=== PATIENT | female | born 1985 | race Caucasian/White ===

== ENCOUNTER 2023-11-10 16:56 | Emergency (ER) | payer BC, SELFPAY ==
--- NOTE | ~2023-11-10 | CT_ITS ---
EXAMINATION: CT lumbar spine wo con DATE: 11/10/2023 21:01 INDICATION: Low back pain radiating down left leg TECHNIQUE: Computed tomography (CT) of the lumbar spine was performed without intravenous contrast. A utomated exposure control and iterative reconstruction technique were employed. Exam dose: 284.32 mG y-cm total exam DLP. COMPARISON: None FINDINGS: The lumbar vertebrae are normally aligned. No fracture or bone destruction, spondylolysis o r spondylolisthesis. No primary or secondary spinal stenosis is identified.. Lumbar and lumbosacral i nterspaces are well preserved. No significant encroachment upon the dural sac lumbar or sacral nerve roots is identified. IMPRESSION: No significant abnormality detected Reviewed, dictated and finalized at [facility]. Reviewed, dictated and finalized at location A. ET CLEANER
[2023-11-10 16:58] VITALS: BP 140/54; PULSE 65; RESP 18; TEMP 36.9; O2SAT 100
[2023-11-10 20:05] VITALS: BP 116/64; PULSE 63; RESP 17; O2SAT 100
--- NOTE | 2023-11-10 20:06 | PC.NURSE ---
Pt states she took 2 ibuprofen at approx 1830 with slight relief. patient states she sees PT but the pain has worsened today.
--- NOTE | 2023-11-10 20:28 | PC.NURSE ---
Patient ambulated to the bathroom, unable to provide a urine specimen. Patient states she will attempt to provide a sample in a few minutes.
--- NOTE | 2023-11-10 20:40 | ED.BACK ---
HPI - Back Pain/Injury General Chief Complaint: Back Pain/Injury Stated Complaint: Left Back Pain, Pain Down Leg Time Seen by Provider: 11/10/23 20:05 Source: patient Mode of arrival: ambulatory Limitations: no limitations History of Present Illness HPI Narrative: This is a 38 year old female that presents to the ER for low back pain. Reports ongoing for quite some time, but worsening recently. She has been in physical therapy for this with little relief. Reports the pain is worse with movement and ambulation. Radiates down her left leg. Denies fever, dysuria, hematuria, saddle anesthesia or bowel/bladder incontinence. Related Data Allergies Allergy/AdvReac Type Severity Reaction Status Date / Time No Known Allergies Allergy Verified 11/10/23 20:06 Review of Systems Review of Systems: CONSTITUTIONAL: Denies fever GENITOURINARY: Denies dysuria or hematuria. SKIN: Denies rash MUSCULOSKELETAL: Reports back pain, joint pain, and myalgia. NEUROLOGIC: Denies numbness, or weakness. All systems reviewed & are unremarkable except as noted in HPI and below PMFSH Past Medical History Medical History (Updated 11/10/23 @ 22:36 by Kristin Corbin PA-C) No active medical problems Social History Social History (Updated 11/10/23 @ 20:42 by Kristin Corbin PA-C) Smoking status: Never smoker Exam Narrative: GENERAL: Well-appearing, well-nourished, and in no acute distress. HEAD: Normocephalic, atraumatic. EYES: EOMI. CHEST: Clear to auscultation. No respiratory distress. No wheezes rales or rhonchi HEART: Regular rate and rhythm. No murmur heard. Normal peripheral pulses. ABDOMEN: Soft, nontender, nondistended, normal active bowel sounds. EXTREMITIES: Normal range of motion. No edema. Strength equal in bilateral lower extremities (5/5). Normal DP pulses SKIN: Warm, dry, no rash. NEURO: No focal deficits. Alert and oriented x3. PSYCH: Normal mood and affect Course Course Emergency Course: Patient and family updated on workup and agree with plan of care Vital Signs Vital signs: Vital Signs Temperature 98.4 F 11/10/23 16:58 Pulse Rate 65 11/10/23 16:58 Respiratory Rate 18 11/10/23 16:58 Blood Pressure 140/54 L 11/10/23 16:58 Pulse Oximetry 100 11/10/23 16:58 Oxygen Delivery Room Air 11/10/23 16:58 Temperature 98.4 F 11/10/23 16:58 Pulse Rate 63 11/10/23 20:05 Respiratory Rate 17 11/10/23 20:05 Blood Pressure 116/64 11/10/23 20:05 Pulse Oximetry 100 11/10/23 20:05 Oxygen Delivery Room Air 11/10/23 16:58 MDM - Back Pain/Injury MDM Narrative Medical decision making narrative: Patient presents to the ER for acute on chronic low back pain. She is neurologically intact. Her vitals are stable. CT lumbar spine without concerning findings. Patient reports improvement with Tylenol and Valium. Instructed on continued care of sciatica. Will be started on steroid taper. UA with 6-10 WBCs, but also squamous epithelial cells. Likely contamination. This will be sent for culture. Patient is not having any urinary symptoms. She is to follow up with her PCP and neurosurgery. She was given warnings to return to the ER Differential Diagnosis Differential diagnosis: Likely lumbar radiculopathy, sciatica, strain of lumbar region and other (uti) Lab Data Attestation: I reviewed the patient's lab results. Labs: Lab Results 11/10/23 Range/Units 20:50 Urine Color Yellow (Yellow) Urine Appearance Cloudy H (Clear) Urine pH 6.0 (5.0-9.0) Ur Specific [place] 1.017 (1.001-1.035) Urine Protein Negative (Negative) mg/dL Urine Glucose (UA) Negative (Negative) mg/dL Urine Ketones Negative (Negative) mg/dL Ur Blood (Man) Non-hemolyzed trace (Negative) Urine Nitrate Negative (Negative) Urine Bilirubin Negative (Negative) Urine Urobilinogen 0.2 (<2.0) mg/dL Leukocyte Esterase Rfl 1+ H (Negative) JAMIE/UL Urine RBC 3-5 H (0-2) /hpf Urine
[2023-11-10] MEDS: diazePAM INJ (*CRX) 10 MG/2 ML SYRINGE 5 MG IM (20:45)
[2023-11-10] MEDS: ACETAMINOPHEN 500 MG TABLET 1000 MG PO (20:45)
[2023-11-10 21:00] LABS: Appearance Urine Cloudy (Clear); Bacteria Urine Rare /hpf; Bilirubin Urine Negative (Negative); Color Urine Yellow (Yellow); Glucose Urine UA Negative (Negative); Ketones Urine Negative (Negative); Leukocyte Esterase Ur 1+ LEU/UL (Negative); Nitrate Urine Negative (Negative); Non Pathogenic Casts 0-2; Protein Urine Negative (Negative); Specific Grav Ur 1.017 (1.001-1.035); Squamous Epithelial Cell Urine Occasional /hpf (Few); Urobilinogen Urine 0.2 mg/dL (<2.0)
[2023-11-10 21:05] LABS: Add Urine Microscopic? YES
[2023-11-10 22:53] VITALS: BP 112/72; PULSE 62; RESP 16; O2SAT 98
== END 2023-11-10 22:54 | disposition home or self-care (01) ==
PROVIDERS: Emergency Provider Physician Assistant; PCP Internal Medicine
DX: M54.16 Radiculopathy, lumbar region (principal)
CPT/HCPCS: 72131; 81001; 81025; 87086; 96372; 99284; A9270; J3360

== ENCOUNTER 2024-06-25 08:15 | Outpatient (CLI) | payer BC, SELFPAY ==
--- NOTE | ~2024-06-25 | MM_ITS ---
EXAMINATION: MM screening lon BI w flaco HISTORY: Screening TECHNIQUE: Craniocaudal and mediolateral oblique 3-D tomosynthesis images were obtained and synthetic 2-D images were generated. CAD analysis was submitted and interpreted. COMPARISON: No prior mammogram is available for comparison at this institution. BREAST PARENCHYMAL COMPOSITION: Dense: The breasts are extremely dense, which lowers the sensitivity of mammography. FINDINGS: There is no evidence of suspicious mass, calcification, or architectural distortion to sugg est malignancy in either breast. There has been no suspicious interval change. IMPRESSION: 1. No mammographic evidence of malignancy. 2. Recommend routine screening mammography in one year. BI-RADS Category 1: Negative Reviewed, dictated and finalized at location [facility].
== END 2024-06-25 08:16 ==
LOC: CHSIMG 08:20
PROVIDERS: PCP Internal Medicine; Visit Provider Internal Medicine
DX: Z12.31 Encounter for screening mammogram for malignant neoplasm of breast (principal)
CPT/HCPCS: 77063; 77067

== ENCOUNTER 2025-07-11 08:03 | Outpatient (CLI) | payer BC, SELFPAY ==
--- OUTSIDE RECORDS SUMMARY | 2025-07-07 03:45 | XMS_ITS | Continuity of Care Document ---
Author Organization [facility] Address [address] [place] [address] Phone Care Team Providers Care Assistant Manager Quality Management Name Role Phone Floyd Gardiner MD, MD Unavailable Unavailable Allergies, Adverse Reactions, Alerts Substance Reaction Status Criticality No Known Allergies Active No Inform ation Medications Medication Instructions Dosage Effective Dates (start - stop) Status Comments meloxicam 15 mg tablet take 1 tablet by oral route every day 15 MG - Active Procedures Procedure Date X-ray exam shoulder complete, minimum 2 views Office/outpatient visit,[facility], [facility] [place] X-ray Exam Hip Unilat With Pelvis When P erformed Min 4 Views Office/outpatient visit,[place], [facility] [place] 2024 Advance Directives Directive Yes / No Effective Date File Name No Information Encounters Encounter Description Practice Location Reason(s) For Visit Diagnoses Date Provider Providers Copied on Encounter Office/[place]pa [place]ient visit[place], [facility] [facility] [place] [facility], [address] [place] [address], [id number], [place] tel:[phone] [facility] left shoulder pain (chief complaint) Pain in left shoulderBursitis of left shoulder Zuleyka Barrientos. [address] [place] [address], [place] [address], [place], [place], [id number] , [place]. tel: [phone] Office/outpa tient visit,new, [facility], [address] [place] [address], [id number], tel:[phone] [facility] left hip pain (chief complaint) Pain in left hipOsteophyte, left hipOther sprain of left hip, initial encounter Zuleyka Barrientos. [address], [address], [place], [place], [id number] , [place]. tel: [phone] Family History Family Member Type Diagnosis Age At Onset No Information Payers Payer name Insurance type Covered green party ID Authoriza wanda(s) Cleopatra Keating [facility] [id number] Social History Type Description Quantity Date Captured Comments Alcohol Use Details Unknown Caffeine Use Details Unknown Tobacco Use Status No Information Smoking Status No Information Non-Smoking Tobacco Use Details : No Details Available : No Details Available Sex Female Gender Identity Female Vital Signs Date / Time: Height Weight BMI Pulse Rate Blood Pressure Temperature Respiratory Rate Body Surface Area Head Circumference Head Circ. Percentile Wt./Lev. Percentile BMI percentile Pulse Ox Inhaled Ox 8:34 AM 69.00 in 63.503 kg (140.00 lbs) 20.6 7 kg/m eter (2) 1.76 meter(2) Chief Complaint And Reason For Visit From encounter dated '07/07/2025 08:45'. left shoulder pain (chief complaint). Description: Gill Sanchez is a 40 year old female. She presents with pain on the left side. She states that the symptoms have been acute non-traumatic and began 1 year ago. She notes no specific injury, but reports the shoulder started to bother her after repetitive overhead activities. The symptoms occur intermittently. Currently the patient states that the symptoms are moderate. The symptoms occur with activity. The patient is experiencing pain in the following location: lateral shoulder on the left side. The pain radiates to the upper arm on the left side. The symptoms are aggravated by daily activities, lifting away from the body and reaching over head. Pertinent negatives include nocturnal awakening and tingling in the arms. She has had 6 weeksof PT with mixed results. She is scheduled for hip arthroscopy on 07/24/25, and obviously this will require some period of time on crutches. Reason For Referral Reason For Referral No Information Plan Of Treatment Date Type Action Status Referral Ordered: X-ray exam shoulder complete, minimum 2 views LT shoulder ordered Referral Ordered: X-ray Exam Hip Unilat With Pelvis When Performed Min 4 Views LT hip ordered Appointment Gill Sanchez BOOKED Future Order: Lab Order Basic Mo tabolic Panel (BMP), Ordered on: Ordered History Of Present Illness Encounter Date Complaint History Of Prese nt Illness left shoulder pain Gill Doshi mp is a 40 year old female. She presents with pain on the left side. She states that the symptoms have been acute non-traumatic and began 1 year ago. She notes no specific injury, but reports the shoulder started to bother her after repetitive overhead activities. The symptoms occur intermittently. Currently the patient states that the symptoms are moderate. The symptoms occur with activity. The patient is experiencing pain in the following location: lateral shoulder on the left side. The pain radiates to the upper arm on the left side. The symptoms are aggravated by daily activities, lifting away from the body and reaching overhead. Pertinent negatives include nocturnal awakening and tingling in the arms. She has had 6 weeks of PT with mixed results. She is scheduled for hip arthroscopy on 07/24/25, and obviously this will require some period of time on crutches. left hip pain Gill Sanchez is a 40 year old female. She presents with pain, decreased range of motion and mechanical symptoms on the left side. She states that the symptoms have been acute traumatic and began 2 years ago. She notes initial injury was sustained while on a [employer] when the hip was hyperflexed and rotated. She was initially evaluated for lumbar spine issues and treated nonoperatively and then by Dr. Diaz and underwent a course of diagnosis specific physical therapy, anti-inflammatory medications, activity modifications but there was no resolution. She is underwent a diagnostic and hopefully therapeutic image guided intra-articular injection which provided 8 hours of near complete relief. The symptoms occur constantly with intermittent worsening. Currently the patient states that the symptoms are moderate-severe. The pain is described as localized. The symptoms occur with activity. The patient is experiencing pain in the following location: groin based on the left side. She also reports additional pain in the buttock/SI areas on the left side. She rates her worst pain as 7/10. She rates her current pain as 4/10. The symptoms are aggravated by daily activities, movement, rotation, walking and ascending stairs. Pertinent negatives include true lumbar radiculopathy, lower extremity numbness and/or tingling. Previous imaging has included x-rays as well as an MRI as noted below. She currently has ongoing symptoms which limit desired activities and ADLs and has failed reasonable nonoperative treatment. Functional Status Date Functional Assessmen t No Information Instructions Date Instruction Additional Infor jose m After discussing the risks, benefits, and alternatives to a minor procedure the patient would like to proceed with a subacromial injection and we will make arrangements for this with my A/C TECH Hina Leon who does these injections. We will plan on doing this at her 6-week postop visit for the hip, as proceeding today would likely not provide much benefit. We also discussed the need for an icing program, activity modifications, and instructions were given for a home strengthening program. We discussed the need for side effect monitoring and a prescription for an oral/topical NSAID was given/they declined and will utilize OTC medications with PCP approval.We discussed we could repeat an injection again in 12 weeks or more vs. proceeding with arthroscopic surgical intervention if not improved/symptoms return. The patient will follow up on an as needed basis and was instructed to call with any issues or concerns. Questions answered, verbalized understanding. Related to Bursitis of left shoulder After discussing the risks, benefits, and alternatives of all of the above the patient has elected to proceed with operative treatment. We will make arrangements for LEFT hip arthroscopy, labral repair vs. debridement with a preference for repair, femoral osteochondroplasty and/or acetabular osteoplasty as indicated. We also discussed the possible need for chondroplasty and/or microfracture as indicated. In addition, we discussed the risk of regional and general anesthesia, including but not limited to nerve injury and even . We discussed in detail the intra-operative nature of the decision to repair vs. debride the torn labral tissue. We discussed the need for a mate first and my A/C TECH's role in the post operative period. The patient understood, had their questions answered, and would like to proceed. We will obtain medical clearance as needed and surgery will be scheduled at the patient's convenience. The patient will call if they have other questions, concerns, or needs. Related to Other sprain of left hip, initial encounter Assessments Type Assessment Date assessment Pain in left shoulder assessment Bursitis of left shoulder impression We discussed in deta il the symptoms, causes, treatment options, and expected outcomes of the patient's rotator cuff tendonitis/bursitis and/or impingement findings. We discussed the role of initial non-operative management strategies, including icing, the judicious use of anti-inflammatory medications with the approval of the patient's primary care physician, activity modifications, physical therapy and/or home exercises. We discussed the role of cortisone injections as well as biologic injections such as PRP, and the possible need for surgical intervention should non-surgical treatments fail. After a detailed discussion the patient and I have elected to proceed with the following plan. Patient Care Teams Name Effective Dates (start - stop) Status Members No Information
--- NOTE | ~2025-07-11 | MM_ITS ---
EXAMINATION: MM screening lon BI w flaco HISTORY: Screening mammogram TECHNIQUE: Craniocaudal and mediolateral oblique 3-D tomosynthesis images were obtained and synthetic 2-D images were generated. CAD analysis was submitted and interpreted. COMPARISON: 06/25/2024 BREAST PARENCHYMAL COMPOSITION:Dense: The breasts are extremely dense, which lowers the sensitivity of mammography. FINDINGS: No suspicious mass, calcification, or architectural distortion are identified in either breast to suggest malignancy. There has been no suspicious interval change. IMPRESSION: No mammographic evidence of malignancy. Recommend routine screening mammography in one year. BI-RADS Category 1: Negative Reviewed, dictated and finalized at location .
--- OUTSIDE RECORDS SUMMARY | 2025-07-11 08:07 | XMS_ITS | Clinical Summary ---
Author Organization [facility] Address [address] [place] [address] Care Team Providers Care Retreader Name Role Phone Sha Silva MD Unavailable [phone] Skyler Lopez MD Primary Care Provider [phone] Source Comments [facility] [employer],non-owned Affiliates and Associated Physician Practices is amultiple site organization consisting of ambulatory clinics and hospital sitesin [place], [place], [place] and [place]. This disclosure is being madepursuant to the Care Everywhere program and may not contain all information available regarding this patient. Last updated 18.[facility] [employer] [facility] Allergies No known active allergies Medications * Be aware that medications may not be up to date on this document. Alwaysverify current medications with the patient. HYDROcodone-connor taminophen ([place]) 5-325 MG tablet Take 1 (one) tablet by mouth every 6 hours as needed pain 4 Active tiZANidine (Zanaflex) 4 MG tablet Take 1 (one) tablet by mouth at bedtime 30 tablet 4 Active Additional Information Patient not taking.Reported on 03/11/2024 meloxicam (Mobic) 15 MG tablet Take 1 (one) tablet by mouth once daily Active Social History Tobacco Use Types Packs/Day Years Used Date Smoking Tobacco: Never Assessed PHQ-2 Answer Date Recorded Patient Health Questionnaire-2 Score 0 03/11/2024 Comments Unknown Sex and Gender Information Value Date Recorded Sex Assigned at Not on file Legal Sex Female 8:25 AM CDT Gender Identity Not on file Sexual Orientation Not on file Last Filed Vital Signs Vital Sign Reading Time Taken Comments Blood Pressure 110/66 12/18/2023 7:24 AM [employer] Pulse 55 12/18/2023 8:01 AM [employer] Temperature - - Respiratory Rate 16 12/18/2023 8:01 AM [employer] Oxygen Saturation 100% 12/18/2023 8:01 AM [employer] Inhaled Oxygen Concentration - - Weight 61.2 kg (135 lb) 12/04/2023 8:26 AM [employer] Height 175.3 cm (5' 9) 12/04/2023 8:26 AM [employer] Body Mass Index 19.94 12/04/2023 8:26 AM [employer] Plan of Treatment Health Maintenance Due Date Last Done Comments MAMMOGRAM 1984 HIV SCREENING 1999 HEPATITIS C SCREENING 05/21/2002 DTAP/TDAP/TD VACCINES (1 - Tdap) 2003 HEPATITIS B VACCINE (1 of 3 - 19+ 3-dose series) 2003 HPV VACCINE (1 - 3-dose SCDM series) 2011 COVID-19 VACCINE (2 - season) 2024 02/16/2021 DEPRESSION SCREENING 11/20/2024 12/18/2023 INFLUENZA VACCINE (#1) 2025 2, 09/21/2021, 10/13/2020, Additional history exists PAP SMEAR 08/24/2026 08/24/2023, 08/24/2023 LIPID TESTING 11/02/2028 11/02/2023 ZOSTER VACCINE (1 of 2) 2034 HIB VACCINE Aged Out No longer eligi ble based on patient's age to complete this topic MENINGOCOCCAL (Group B) VACCINE SHARED DECISION-MAKING Aged Out No longer eligible based on patient's age to complete this topic MENINGOCOCCAL GROUPS A/C/Y/W VACCINE Aged Out No longer eligible based on patient's age to complete this topic PNEUMOCOCCAL VACCINE Aged Out No long er eligible based on patient's age to complete this [place] [address] [place] [address] Care Teams Retreader Relationship Specialty Start Date End Date Skyler Lopez MD [address] [place] [phone] PCP - General Internal Medicine 12/04/23 [place] [id number] [address] [address] Physical Medicine and Rehabilitation 12/04/23
--- OUTSIDE RECORDS SUMMARY | 2025-07-11 08:07 | XMS_ITS | Clinical Summary ---
Author Organization [facility] Address [address] [place] [address] Care Team Providers Care Pharmacovigilance Specialist Name Role Phone Skyler Lopez MD Primary Care Provider [phone] Allergies No known active allergies Medications Aurovela Fe 1-20, 28, 1 mg-20 mcg (21)/75 mg (7) per tablet Take 1 tablet by mouth daily 1 Active ascorbic acid (ascorbic acid with joe hips) 500 mg tablet,chewable Acti ve B cmplx 4/vit D3/C/folic/zinc (VITAL-D RX ORAL) Take by mouth daily Active cetirizine (ZyrTEC) 10 mg tablet Take 10 mg by mouth daily Active diclofenac DR (VOLTAREN) 75 mg EC tablet Take 1 BID with food 60 tablet 1 Active gabapentin (NEURONTIN) 300 mg capsule Gabapentin 300 mg. Take 1 at HS, if tolerated after 5 days may increase to 2 at HS. 60 capsule 1 Active meloxicam (MOBIC) 15 mg tablet 5 Active cyclobenzaprine (FLEXERIL) 5 mg tablet TAKE 1 TABLET BY MOUTH EVERY 8 HOURS NEEDED FOR SPASMS 5 Active Active Problems Problem Noted Date Diagnosed Date Hyperthyroidism 07/03/2013 Palpitations 07/03/2013 Encounters Date Type Department Care Team Description 06/30/2025 Telephone [facility] Medical Group Orthopedics and Sports Medicine [address] [address] Cary Martinez MA Left message for Appointment 06/26/2025 2:00 PM CDT Office Visit [facility] Medical [facility] Orthopedics and Sports Medicine [address] [facility] [address] [place] [address] Taylor Clements PA Left hip pain (Primary Dx) 06/26/2025 7:43 AM CDT - 06/26/2025 11:59 PM CDT Hospital Encounter [facility] Orthopedics and Sports Medicine [address] [facility] [address] [place] [phone] Discharge Disposition: Discharge to home or self care 04/29/2025 Telephone [facility] Orthopedics and Sports Medicine [address] [facility] [address] [place] [address] Carlos Suazo MD Left hip referral from Last 3 Months Surgical History Surgery Date Site/Laterality Comments FL UPPER GI AIR CONTRAST W KUB 03/12/2021 Left Medical History Medical History Date Comments Allergic rhinitis Family History Medical History Relation Name Comments No Known Problems Father No Known Problems Mother Relation Name Status Comments Father Alive Mother Alive Social History Tobacco Use Types Packs/Day Years Used Date Smoking Tobacco: Never Smokeless Tobacco: Never AUDIT-C Answer Date Recorded Q1: How often do you have a drink containing alcohol? Never 06/26/2025 Q2: How many drinks containi ng alcohol do you have on a typical day when you are drinking? Patient does not drink Q3: How often do you have si x or more drinks on one occasion? 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 Not on file Not on file Obstetrics History Last Filed Vital Signs Vital Sign Reading Time Taken Comments Blood Pressure 110/75 06/26/2025 2:03 PM CDT Pulse 75 06/26/2025 2:03 PM CDT Temperature - - Respiratory Rate - - Oxygen Saturation - - Inhaled Oxygen Concentration - - Weight 63.5 kg (140 lb) 06/26/2025 2:03 PM CDT Height 175.3 cm (5' 9) 06/26/2025 2:03 PM CDT Body Mass Index 20.67 06/26/2025 2:03 PM CDT Plan of Treatment Health Maintenance Due Date Last Done Comments Breast Cancer Screening-Mammogram 1984 Cervical Cancer Screening 1984 Depression Screening 1984 Hepatitis C Screening 1984 Varicella Vaccines (1 of 2 - 13+ 2-dose series) 1997 Regular Well Visit/Exam 18-64 2002 HPV Vaccines (1 - 3-dose SCDM series) 2011 Covid-19 Vaccine (2 - 2023- season) 2024 02/16/2021 Influenza Vaccine (#1) 2025 , 09/21/2021, 10/13/2020, Additional history exists DTaP/Tdap/Td Vaccine (8 - Td or Tdap) 12/25/2034 12/25/2024, 09/08/2014, 06/22/1998, Additional history exists Hepatitis B Screening Completed 02/08/1999 , 09/07/1998, 06/22/1998 Pneumococcal vaccine <65 Aged Out No longer eligible based on patient's age to complete this topic Procedures Procedure Name Priority Date/Time Associated Diagnosis Comments XR HIP LEFT 2 OR 3 VIEWS Schedule Routine, Read Routine (OP Routine) 06/26/2025 1:58 PM CDT Left hip pain from Last 3 Months Results * XR Hip Left 2 or 3 Views (06/26/2025 1:58 PM CDT) Anatomical Region Laterality Modality Lower Extremities, Hip, Pelvis Left D igital Radiography Narrative 06/26/2025 2:19 PM CDT Radiographs taken of the left hip today reveal mild degenerative changes and maintained joint space. [facility] IMG XR PROCEDURES Dario stephanie Result - Final from Last 3 Months Insurance [facility] BLUE ACCESS OOS BLUE ACC CHOICE OOS BLUE ACCESS OOS Care Teams Pharmacovigilance Specialist Relationship Specialty Start Date End Date Skyler Lopez MD [address] [place] [address] PCP - General Internal Medicine 03/03/21
--- OUTSIDE RECORDS SUMMARY | 2025-07-11 08:07 | XMS_ITS | Encounter Summary ---
Author Organization [facility] Address [address] [place] [address] Care Team Providers Care Australian Rules Footballer Name Role Phone Skyler Lopez MD Primary Care Provider [phone] Encounter Details Date Type Department Care Team (Late st Contact Info) Description 05/22/2025 Results Follow-Up [facility] Medical Group Family & Internal Medicine [facility] [address] [place] [address] Skyler Lopez MD [address] [place], [place] [id number] XR SHOULDER LT 3V, MRI SHOULDER LT WO CON Social History Tobacco Use Types Packs/Day Years Used Date Smoking Tobacco: Never Passive Smoke Exposure: Never Smokeless Tobacco: Never Alcohol Use Standard Drinks/Week Comments No 0 (1 standard drink = 0.6 oz pur e alcohol) AUDIT-C Answer Date Recorded Frequency of Alcohol Consumption Never 10/16/2018 Average Number of Drinks Not on file 018 Frequency of Binge Drinking Not on file 09/21 PHQ-2 Answer Date Recorded Patient Health Questionnaire-2 Score 0 12/25/2024 Comments No Sex and Gender Information Value Date Recorded Sex Assigned at Female 10/16/2018 1:45 PM OPTOELECTRONICS ENGINEER Legal Sex Female 8:09 PM CDT Gender Identity Female 10/16/2018 1:45 PM OPTOELECTRONICS ENGINEER Sexual Orientation Straight 10/16/2018 1: 45 PM OPTOELECTRONICS ENGINEER documented as of this encounter Progress Notes * Skyler Lopez MD - 07/07/2025 1:05 PM CDT Spoke with Dr. Merlos about MRI, recommended starting with injection and if not improving may need to see a surgeon. Refer to Dr. Melros for further evaluation. * Skyler Lopez MD - 05/22/2025 4:54 PM CDT Reviewed results of X-ray with patient at office visit. documented in this encounter Plan of Treatment Not on file documented as of this encounter Visit Diagnoses Not on filedocumented in this encounter Additional Health Concerns Assessment Noted Time PHQ-9 Depression Total Score: 0 09/21/20 21 8:42 AM CDT documented as of this encounter Care Teams Australian Rules Footballer Relationship Specialty Start Date End Date Skyler Lopez MD [address] [place] [id number] PCP - General INTERNAL MEDICINE 09/12/18 documented as of this encounter
--- OUTSIDE RECORDS SUMMARY | 2025-07-11 08:07 | XMS_ITS | Encounter Summary ---
Author Organization [facility] Address [address] [place] [address] Care Team Providers Care Facetor Name Role Phone Skyler Lopez MD Primary Care Provider [phone] Encounter Details Date Type Department Care Team (Late st Contact Info) Description 04/28/2025 Quitbit Message [facility] [place] [address] [id number] Deondre, [facility] Provider REFERRAL Social History Tobacco Use Types Packs/Day Years [...] Sex Assigned at Female 10/16/2018 1:45 PM OIL DISTRIBUTOR TENDER Legal Sex Female 8:09 PM CDT Gender Identity Female 10/16/2018 1:45 PM OIL DISTRIBUTOR TENDER Sexual Orientation Straight 10/16/2018 1: 45 PM OIL DISTRIBUTOR TENDER documented as of this encounter Plan of Treatment Not on file documented as of this encounter Visit Diagnoses Not on filedocumented in this encounter Additional Health Concerns Assessment Noted Time PHQ-9 Depression Total Score: 0 09/21/20 8:42 AM CDT documented as of this encounter Care Teams Facetor Relationship Specialty Start Date End Date Skyler Lopez MD [address] [place] [address] PCP - General INTERNAL MEDICINE 09/12/18 documented as of this encounter
--- OUTSIDE RECORDS SUMMARY | 2025-07-11 08:07 | XMS_ITS | Encounter Summary ---
Author Organization [facility] Address [address] [place] [address] Care Team Providers Care Office Technology Instructor Name Role Phone Skyler Lopez MD Primary Care Provider [phone] Encounter Details Date Type Department Care Team (Late st Contact Info) Description 05/19/2025 Hospital Encounter [facility] [place] [phone] Negrita Prince MD [facility] [address] [place], [place] [id number] Social History Tobacco Use Types Packs/Day Years [...] Sex Assigned at Female 10/16/2018 1:45 PM ELECTRONIC CALIBRATION TECHNICIAN Legal Sex Female 8:09 PM CDT Gender Identity Female 10/16/2018 1:45 PM ELECTRONIC CALIBRATION TECHNICIAN Sexual Orientation Straight 10/16/2018 1: 45 PM ELECTRONIC CALIBRATION TECHNICIAN documented as of this encounter Plan of Treatment Not on file documented as of this encounter Visit Diagnoses Diagnosis Left hip pain- Primary Pain in joint, pelvic region and thigh documented in this encounter Admitting Diagnoses Diagnosis Left hip pain Pain in joint, pelvic region and thigh documented in this encounter Additional Health Concerns Assessment Noted Time PHQ-9 Depression Total Score: 0 09/21/20 21 8:42 AM CDT documented as of this encounter Care Teams Office Technology Instructor Relationship Specialty Start Date End Date Skyler Lopez MD [address] [place] [id number] PCP - General INTERNAL MEDICINE 09/12/18 documented as of this encounter
--- OUTSIDE RECORDS SUMMARY | 2025-07-11 08:07 | XMS_ITS | Encounter Summary ---
Author Organization [facility] [place] [facility] Address [address] [place] [address] Care Team Providers Care Frozen Foods Manager Name Role Phone Skyler Lopez MD Primary Care Provider [phone] Encounter Details Date Type Department Care Team (Late st Contact Info) Description 12/30/2024 [employer] Message [facility] Family & Internal Medicine [address] [address] [facility] Provider lab results Social History Tobacco Use Types Packs/Day Years [...] Sex Assigned at Female 10/16/2018 1:45 PM LATHE TENDER Legal Sex Female 8:09 PM CDT Gender Identity Female 10/16/2018 1:45 PM LATHE TENDER Sexual Orientation Straight 10/16/2018 1: 45 PM LATHE TENDER documented as of this encounter Plan of Treatment Not on file documented as of this encounter Visit Diagnoses Not on filedocumented in this encounter Additional Health Concerns Assessment Noted Time PHQ-9 Depression Total Score: 0 09/21/20 21 8:42 AM CDT documented as of this encounter Care Teams Frozen Foods Manager Relationship Specialty Start Date End Date Skyler Lopez MD [address] [place] [address] PCP - General INTERNAL MEDICINE 09/12/18 documented as of this encounter
--- OUTSIDE RECORDS SUMMARY | 2025-07-11 08:07 | XMS_ITS | Encounter Summary ---
Author Organization [facility] Address [address] [place] [address] Care Team Providers Care Information Coder Name Role Phone Skyler Lopez MD Primary Care Provider [phone] Encounter Details Date Type Department Care Team (Latest Contact Info) Description 09/25/2018 Abstract [facility] , Kody Howard MD Social History Tobacco Use Types Packs/Day Years Used Date Smoking Tobacco: Never Assessed Comments Unknown Sex and Gender Information Value Date Recorded Sex Assigned at Female 10/16/2018 1:45 PM BRAND STRATEGIST Legal Sex Female 8:09 PM CDT Gender Identity Female 10/16/2018 1:45 PM BRAND STRATEGIST Sexual Orientation Straight 10/16/2018 1: 45 PM BRAND STRATEGIST documented as of this encounter Plan of Treatment Not on file documented as of this encounter Visit Diagnoses Not on filedocumented in this encounter Care Teams Information Coder Relationship Specialty Start Date End Date Skyler Lopez MD [address] [place] [phone] PCP - General INTERNAL MEDICINE 09/12/18 documented as of this encounter
--- OUTSIDE RECORDS SUMMARY | 2025-07-11 08:07 | XMS_ITS | Clinical Summary ---
Author Organization [facility] Address [address] [place] [address] Care Team Providers Care Compensation Intern Name Role Phone Skyler Lopez MD Primary Care Provider [phone] Allergies No known active allergies Medications ferrous sulfate, 65 mg elemental, 325 (65 FE) MG tablet Take 1 tablet (325 mg total) by mouth daily. 7 Active cetirizine (ZYRTEC) 10 MG tablet Take 1 tablet (10 mg total) by mouth daily. Active meloxicam (MOBIC) 15 MG tabletIndications: Acute left lumbar radiculopathy Take 1 tablet by mouth daily. 90 tablet 2 5 Active predniSONE (DELTASONE) 20 MG tabletIndications: Chronic left shoulder pain Take two tablets daily for 4 days, then one tablet daily for 3 days 11 tablet 5 Active Active Problems Problem Noted Date Diagnosed Date Left hip pain 03/24/2025 SI (sacroiliac) joint dysfunction 09/12/2024 BRBPR (bright red blood per rectum) 02/01/2024 Vitamin D deficiency 11/09/2020 Lumbar strain 01/17/2018 Hematuria 10/27/2017 Hypoglycemia 08/29/2013 Anemia 04/02/2013 Acne 03/18/2013 Allergic rhinitis 03/18/2013 Resolved Problems Problem Noted Date Diagnosed Date Resolved Date Screening, lipid 10/04/2016 07/31/2020 Screening for heart disease 09/04/2014 07/31/2020 Encounters Date Type Department Care Team Description 07/03/2025 Telephone [facility] Family & Internal Medicine - [address] [address] Skyler Lopez MD Results 06/25/2025 12:39 PM CDT - 06/25/2025 11:59 PM CDT Hospital [place] [address] [place] [address] Skyler Lopez MD Discharge Disposition: Home or Self Care (Routine Discharge) 06/25/2025 Travel 05/22/2025 2:20 PM CDT Allied Health/Nurse Visit [facility] Family & Internal [address] [phone] Skyler Lopez MD Allied Health Visit 05/22/2025 Results Follow-Up [address] [address] Skyler Lopez MD XR SHOULDER LT 3V, MRI SHOULDER LT WO CON 05/22/2025 Travel 05/20/2025 1:00 PM CDT Office Visit [facility] [address] [address] Skyler Lopez MD Shoulder Pain (Left side, continues after Pt) 05/20/2025 Scan [employer] HEALTH INFO SRVCS Scanned, [facility] 05/20/2025 Travel 05/19/2025 Hospital Encounter [facility] [place] [address] [phone] Negrita Prince MD 04/28/2025 Deondre Message Enc [facility] [place] [address] [phone] Deondre [facility] Provider REFERRAL 04/28/2025 Orders Only [facility] [place] [address] [phone] Reji Strickland, DAMARIS 04/28/2025 Telephone [facility] [place] [address] [phone] Precious Ludwig RN Follow Up from Last 3 Months Immunizations Immunization Administration Dates Next Due Dtp 07/03/1989, 7,08/07/1985,1984,1984 Fluzone 6 Months+ Quad (0.5 mL Prefilled Syringe) 10/05/2022,09/21/2021,10/13/2020,2018,10/16/2018 Hepatitis B Pediatric 02/08/1999,09/07/1998,01/1998 Hib 12/22/1986 Influenza (Generic) 08/03/2016,08/20/2015 Influenza Adult (Generic) 10/03/2017,09/04/2014 MMR 06/25/1992,09/27/1985 Opv 07/03/1989, 7,08/07/1985,1984,1984 PFIZER COVID-19 (ORIGINAL FORMULATION, PURPLE CAP) mRNA, LNP-S, PF, 30 MCG/0.3 ML DOSE 02/16/2021 Td 06/22/1998 Tdap (Adacel) 12/25/2024 Tdap (Generic) 09/08/2014 Family History Medical History Relation Comments No Known Problems Father Parkinson's Disease Mother Colon Cancer Paternal Grandmother late 70s Relation Status Comments Father Alive Maternal Grandmother Mother Alive Paternal Grandmother Social History Tobacco Use Types Packs/Day Years Used Date Smoking Tobacco: Never Passive Smoke Exposure: Never Smokeless Tobacco: Never Tobacco Cessation:Counseling Given: Not Answered Alcohol Use Standard Drinks/Week Comments No 0 [...] Sex Assigned at Female 10/16/2018 1:45 PM SECRETARY BOOKKEEPER Legal Sex Female 8:09 PM CDT Gender Identity Female 10/16/2018 1:45 PM SECRETARY BOOKKEEPER Sexual Orientation Straight 10/16/2018 1: 45 PM SECRETARY BOOKKEEPER Last Filed Vital Signs Vital Sign Reading Time Taken Comments Blood Pressure 108/64 05/20/2025 1:02 PM CDT Pulse 76 05/20/2025 1:02 PM CDT Temperature 36.6 C (97.8 F) 05/20/2025 1:02 PM CDT Respiratory Rate 16 05/20/2025 1:02 PM CDT Oxygen Saturation 99% 05/20/2025 1:02 PM CDT Inhaled Oxygen Concentration - - Weight 64 kg (141 lb) 05/20/2025 1:02 PM CDT Height 175.3 cm (5' 9) 05/20/2025 1:02 PM CDT Body Mass Index 20.82 05/20/2025 1:02 PM CDT Plan of Treatment Health Maintenance Due Date Last Done Comments HPV Vaccines (1 - 3-dose SCDM series) 2011 Cervical Cancer Screening Pap with HPV Testing (Age 30 to 64) Every 5 Years 2014 Annual Physical 12/25/2025 12/25/2024, 12/0 04/2023, 10/05/2022, Additional history exists COVID-19 Vaccine () 12/25/2025 03/07/2021, 02/16/2021 Postponed from 07/21/2024 (Patient Refused) Mammogram Screening 06/25/2026 06/25/2024 Cervical Cancer Screening Pap Smear (Age 30 to 64) Every 3 Years 08/24/2026 08/24/2023 Cervical Cancer Screening with HPV 08/24/2026 DTaP, Tdap and Td Vaccines (4 - Td or Tdap) 12/25/2034 12/25/2024, 09/08/2014, 06/22/1998, Additional history exists Hepatitis B Vaccines Completed 02/08/1999, 09/07/1998, 06/22/1998 Hepatitis C Completed 12/25/2024 PHQ-2 (Physician [place]) Completed 12/25/2024 Meningococcal B Vaccine Aged Out No l onger eligible based on patient's age to complete this topic Meningococcal Vaccine Aged Out No skyler aidan eligible based on patient's age to complete this topic Pneumococcal Vaccine: Pediatrics (0 to 5 Years) and At-Risk Patients (6 to 49 Years) Aged Out No longer eligible based on patient's age to complete this topic RSV Immunizations Under 20 Months Aged Out No longer eligible based on patient's age to complete this topic Procedures Procedure Name Priority Date/Time Associated Diagnosis Comments MRI SHOULDER LT WO CON Routine 06/25/2025 1:16 PM CDT Chronic left shoulder pain TB INTRADERMAL TEST (BACK OFFICE) Routine 05/20/2025 2:36 PM CDT PPD screening test XR SHOULDER LT 3V Routine 05/20/2025 2:0 4 PM CDT Chronic left shoulder pain HEPATITIS C ANTIBODY Routine 12/25/2024 10:21 AM SECRETARY BOOKKEEPER Routine general medical examination at a health care facility MAMMOGRAM GENERIC (SCAN ORDER) 06/25/2024 from Last 3 Months or Most Recently Relevant to Health Maintenance Results * MRI SHOULDER LT WO CON (06/25/2025 1:16 PM CDT) Anatomical Region Laterality Modality Shoulder Magnetic Resonan ce 06/25/2025 3:15 PM CDT Impressions 06/27/2025 3:30 PM CDT IMPRESSION: 1. Low-grade partial bursal surface tear critical zone distal supraspinatus tendon. No full-thickness rotator cuff tear. No tendon retraction or muscular atrophy. Unremarkable MRI of the shoulder. The attending radiologist has reviewed the image(s) and agrees with the content of this report. Ordered By: SKYLER LOPEZ Interpreted By: Ying Moser MD, 06/25/2025 3:15 PM Narrative 06/27/2025 3:30 PM CDT [facility] [address] [place] [address] EXAMINATION: MRI SHOULDER LT WO CON EXAM TIME: 06/25/2025 1:00 PM HISTORY: CHRONIC LEFT SHOULDER PAIN, PERSISTENT AFTER PHYSICAL THERAPY COMPARISON: 05/20/2025 XR left shoulder TECHNIQUE: Multiplanar, multisequence magnetic resonance images of the shoulder were obtained without intravenous contrast. FINDINGS: BONE: Marrow signal is within normal limits. No significant marrow edema. ROTATOR CUFF: There is a low-grade partial thickness bursal surface tear distal supraspinatus critical zone. No evidence of full-thickness rotator cuff tear. No tendon retraction or muscular atrophy. BICEPS BRACHII: The long head of the biceps tendon is normally situated within the bicipital groove and attaches normally to the biceps anchor. CORACOACROMIAL ARCH: No significant acromioclavicular joint arthritis. No significant fluid within the subacromial/subdeltoid bursa. LABRUM: No discrete labral tear is seen. GLENOHUMERAL JOINT: Glenohumeral joint alignment is maintained. Physiologic joint fluid. MISCELLANEOUS: Axillary neurovascular structures are grossly unremarkable. No visualized axillary lymphadenopathy. Procedure Note Ibrahima Ragland MD - 06/27/2025 [facility] [address] [facility]. [place] [id number] EXAMINATION: MRI SHOULDER LT WO CON EXAM TIME: 06/25/2025 1:00 PM HISTORY: CHRONIC LEFT SHOULDER PAIN, PERSISTENT AFTER PHYSICAL THERAPY COMPARISON: 05/20/2025 XR left shoulder TECHNIQUE: Multiplanar, multisequence magnetic resonance images of theshoulder were obtained without intravenous contrast. FINDINGS: BONE: Marrow signal is within normal limits. No significant marrowedema. ROTATOR CUFF: There is a low-grade partial thickness bursal surface teardistal supraspinatus critical zone. No evidence of full-thickness rotatorcuff tear. No tendon retraction or muscular atrophy. BICEPS BRACHII: The long head of the biceps tendon is normally situatedwithin the bicipital groove and attaches normally to the biceps anchor. CORACOACROMIAL ARCH: No significant acromioclavicular joint arthritis. Nosignificant fluid within the subacromial/subdeltoid bursa. LABRUM: No discrete labral tear is seen. GLENOHUMERAL JOINT: Glenohumeral joint alignment is maintained.Physiologic joint fluid. MISCELLANEOUS: Axillary neurovascular structures are grossly unremarkable.No visualized axillary lymphadenopathy. IMPRESSION: 1. Low-grade partial bursal surface tear critical zone distalsupraspinatus tendon. No full-thickness rotator cuff tear. No tendonretraction or muscular atrophy. Unremarkable MRI of the shoulder. The attending radiologist has reviewed the image(s) and agrees with thecontent of this report. Ordered By: SKYLER LOPEZ Interpreted By: Ying Moser MD, 06/25/2025 3:15 PM Skyler Lopez MD MRI Final Result * TB INTRADERMAL TEST (BACK OFFICE) (05/20/2025 2:36 PM CDT) MM INDURATION 0 PPD SKIN TEST neg NOT REQUIRED 05/20/2025 2:36 PM CDT Skyler Lopez MD MICROBIOLOGY - GENERAL ORDERAB LES Final Result * XR SHOULDER LT 3V (05/20/2025 2:04 PM CDT) Anatomical Region Laterality Modality Shoulder Radiographic Radha ging 05/20/2025 4:29 PM CDT Impressions 05/20/2025 4:30 PM CDT IMPRESSION: No radiographic abnormality. Ordered By: SKYLER LOPEZ Interpreted By: Dev Moya MD, 05/20/2025 4:29 PM Narrative 05/20/2025 4:30 PM CDT [facility] Medical [facility] Family and Internal Medicine - [address] [address] Examination: XR SHOULDER LT 3V Exam time: 05/20/2025 1:52 PM Clinical history: Chronic pain Comparison: No prior exam Technique: Internal rotation, external rotation, scapular Y views Findings: Glenohumeral and acromioclavicular joint relationships appear unremarkable. No evidence of fracture, focal bone lesions, or abnormal periosteal reactions. No evidence of abnormal soft tissue densities. Procedure Note Dev Moya MD - 05/20/2025 [facility] Family and Internal Medicine [address] [address] Examination: XR SHOULDER LT 3V Exam time: 05/20/2025 1:52 PM Clinical history: Chronic pain Comparison: No prior exam Technique: Internal rotation, external rotation, scapular Y views Findings: Glenohumeral and acromioclavicular joint relationships appearunremarkable. No evidence of fracture, focal bone lesions, or abnormalperiosteal reactions. No evidence of abnormal soft tissue densities. IMPRESSION: No radiographic abnormality. Ordered By: SKYLER LOPEZ Interpreted By: Dev Moya MD, 05/20/2025 4:29 PM Skyler Lopez MD GENERAL IMAGING Final Result * HEPATITIS C ANTIBODY (12/25/2024 10:21 AM SECRETARY BOOKKEEPER) HEPATITIS C AB NON-REACTI VE NON-REACT ELIANA 12/25/2024 6:11 PM SECRETARY BOOKKEEPER [facility] Comment: ANTIBODIES TO HCV NOT DETECTED. DOES NOT EXCLUDE THE POSSIBILITY OF EXPOSURE TO HCV. 12/25/2024 10:2 1 AM SECRETARY BOOKKEEPER Skyler Lopez MD LABORATORY Final Result [facility] [address] [place] [address], [phone] * MAMMOGRAM GENERIC (SCAN ORDER) (06/25/2024) Anatomical Region Laterality Modality Other 06/25/2024 [facility] Scanned SCANNING Final Resu lt from Last 3 Months or Most Recently Relevant to Health Maintenance Insurance [facility] Care Teams Compensation Intern Relationship Specialty Start Date End Date Skyler Lopez MD [address] [place] [address] [phone] PCP - General INTERNAL MEDICINE 09/12/18
== END 2025-07-11 08:04 | disposition home or self-care (01) ==
LOC: CHSIMG 08:04
PROVIDERS: PCP Internal Medicine; Visit Provider Advanced Practice Midwife
DX: Z12.31 Encounter for screening mammogram for malignant neoplasm of breast (principal)
CPT/HCPCS: 77063; 77067

== ENCOUNTER 2025-08-07 16:20 | Emergency (ER) | payer BC, SELFPAY ==
--- OUTSIDE RECORDS SUMMARY | 2025-08-07 16:23 | XMS_ITS | Encounter Summary ---
Author Organization [facility] Address [address] [place] [id number] Care Team Providers Care Deputy Grand Jury Name Role Phone Skyler Lopez MD Primary Care Provider Encounter Details Date Type Department Care Team (Late st Contact Info) Description 12/30/2024 Flinja Message [facility] Family & Internal Medicine [address] [address] [facility], [facility] Provider lab results Social History Tobacco [...] Sex Assigned at Female 10/16/2018 1:45 PM LICENSED PLUMBER Legal Sex Female 8:09 PM CDT Gender Identity Female 10/16/2018 1:45 PM LICENSED PLUMBER Sexual Orientation Straight 10/16/2018 1: 45 PM LICENSED PLUMBER documented as of this encounter Plan of Treatment Not on file documented as of this encounter Visit Diagnoses Not on filedocumented in this encounter Additional Health Concerns Assessment Noted Time PHQ-9 Depression Total Score: 0 09/21/20 21 8:42 AM CDT documented as of this encounter Care Teams Deputy Grand Jury Relationship Specialty Start Date End Date Skyler Lopez MD [address] [place] [id number] PCP - General INTERNAL MEDICINE 09/12/18 documented as of this encounter
--- OUTSIDE RECORDS SUMMARY | 2025-08-07 16:23 | XMS_ITS | Clinical Summary ---
Author Organization [facility] Address [address] [place] [address] Care Team Providers Care Supervisor Vacuum Metalizing Name Role Phone Sha Silva MD Unavailable Skyler Lopez MD Primary Care Provider [phone] Source Comments [facility],non-owned Affiliates and Associated Physician Practices is amultiple site organization consisting of ambulatory clinics and hospital sitesin [place], [place], [place] and [place]. This disclosure is being madepursuant to the Care Everywhere program and may not contain all information available regarding this patient. Last updated 18.[facility] Allergies No known active allergies Medications * Be aware that medications may not be up to date on this document. Alwaysverify current medications with the patient. HYDROcodone-connor taminophen ([place]) 5-325 MG tablet Take 1 (one) tablet [...] Comments Blood Pressure 110/66 12/18/2023 7:24 AM CDA TEACHER Pulse 55 12/18/2023 8:01 AM CDA TEACHER Temperature - - Respiratory Rate 16 12/18/2023 8:01 AM CDA TEACHER Oxygen Saturation 100% 12/18/2023 8:01 AM CDA TEACHER Inhaled Oxygen Concentration - - Weight 61.2 kg (135 lb) 12/04/2023 8:26 AM CDA TEACHER Height 175.3 cm (5' 9) 12/04/2023 8:26 AM CDA TEACHER Body Mass Index 19.94 12/04/2023 8:26 AM CDA TEACHER Plan of Treatment Health Maintenance Due Date Last Done Comments MAMMOGRAM 1984 HIV SCREENING 1999 HEPATITIS C SCREENING 05/21/2002 DTAP/TDAP/TD VACCINES (1 - Tdap) 2003 HEPATITIS B VACCINE (1 of 3 - 19+ 3-dose series) 2003 HPV VACCINE (1 - 3-dose SCDM series) 2011 DEPRESSION SCREENING 11/20/2024 12/18/2023 COVID-19 VACCINE (2 - season) 2025 02/16/2021 INFLUENZA VACCINE (#1) 2025 2, 09/21/2021, 10/13/2020, [...] to complete this topic [place] [address] [place] [address] Care Teams Supervisor Vacuum Metalizing Relationship Specialty Start Date End Date Skyler Lopez MD [address] [place] [id number] PCP - General Internal Medicine 12/04/23 [place] [address] [address] [address] Physical Medicine and Rehabilitation 12/04/23
--- OUTSIDE RECORDS SUMMARY | 2025-08-07 16:23 | XMS_ITS | Encounter Summary ---
Author Organization [facility] Address [address] [place] [address] Care Team Providers Care Wire Frame Dipper Name Role Phone Skyler Lopez MD Primary Care Provider [phone] Encounter Details Date Type Department Care Team (Late st Contact Info) Description 04/28/2025 Alphion Message [facility] [place] [address] [id number] Deondre, [facility] Provider REFERRAL Social History Tobacco Use Types [...] Sex Assigned at Female 10/16/2018 1:45 PM DEMI CHEF Legal Sex Female 8:09 PM CDT Gender Identity Female 10/16/2018 1:45 PM DEMI CHEF Sexual Orientation Straight 10/16/2018 1: 45 PM DEMI CHEF documented as of this encounter Plan of Treatment Not on file documented as of this encounter Visit Diagnoses Not on filedocumented in this encounter Additional Health Concerns Assessment Noted Time PHQ-9 Depression Total Score: 0 09/21/20 8:42 AM CDT documented as of this encounter Care Teams Wire Frame Dipper Relationship Specialty Start Date End Date Skyler Lopez MD [address] [place] [id number] PCP - General INTERNAL MEDICINE 09/12/18 documented as of this encounter
--- OUTSIDE RECORDS SUMMARY | 2025-08-07 16:23 | XMS_ITS | Clinical Summary ---
Author Organization [facility] Address [address] [place] [address] Care Team Providers Care Grid Inspector Name Role Phone Skyler Lopez MD Primary Care Provider [phone] Allergies No known active allergies Medications ferrous [...] Encounters Date Type Department Care Team Description 07/11/2025 Scan [facility] HEALTH INFO SRVCS Scanned, [facility] Mammogram (SCAN) 07/03/2025 Telephone [facility] [address] [address] Skyler Lopez MD Results 06/25/2025 12:39 PM CDT - 06/25/2025 11:59 PM CDT Hospital Encounter [facility] [place] [address] [place] [address] Skyler Lopez MD Discharge Disposition: Home or Self Care (Routine Discharge) 06/25/2025 Travel 05/22/2025 2:20 PM CDT Allied Health/Nurse Visit [facility] Internal [address] [address] Skyler Lopez MD Allied Health Visit 05/22/2025 Results Follow-Up [address] [phone] Skyler Lopez MD XR SHOULDER LT 3V, MRI SHOULDER LT WO CON 05/22/2025 Travel 05/20/2025 1:00 PM CDT Office Visit [address] [phone] Skyler Lopez MD Shoulder Pain (Left side, continues after Pt) 05/20/2025 Scan HEALTH INFO SRVCS Scanned, [facility] 05/20/2025 Travel 05/19/2025 Hospital Encounter [facility] [place] [address] [phone] Negrita Prince MD from Last 3 Months Immunizations Immunization Administration Dates Next Due Dtp 07/03/1989, 7,08/07/1985,1984,1984 Fluzone 6 Months+ Quad (0.5 mL Prefilled Syringe) 10/05/2022,09/21/2021,10/13/2020,2018,10/16/2018 Hepatitis B Pediatric 02/08/1999,09/07/1998,08/0 01/1998 Hib 12/22/1986 Influenza (Generic) 08/03/2016,08/20/2015 Influenza Adult [...] Sex Assigned at Female 10/16/2018 1:45 PM FENCE ERECTOR SUPERVISOR Legal Sex Female 8:09 PM CDT Gender Identity Female 10/16/2018 1:45 PM FENCE ERECTOR SUPERVISOR Sexual Orientation Straight 10/16/2018 1: 45 PM FENCE ERECTOR SUPERVISOR Last Filed Vital Signs Vital Sign Reading [...] 30 to 64) Every 5 Years 2014 COVID-19 Vaccine ( season) 2025 03/07/2021, 02/16/2021 Annual Physical 12/25/2025 12/25/2024, 12/04/2023, 10/05/2022, Additional history exists Cervical Cancer Screening Pap Smear (Age 30 to 64) Every 3 Years 08/24/2026 08/24/2023 Cervical Cancer Screening with HPV 08/24/2026 Mammogram Screening 07/11/2027 07/11/2025, DTaP, Tdap and Td Vaccines (4 - Td or Tdap) 12/25/2034 12/25/2024, 09/08/2014, 06/22/1998, Additional history exists Hepatitis B Vaccines Completed 02/08/1999, 09/07/1998, 06/22/1998 Hepatitis C Completed 12/25/2024 PHQ-2 (Physician [place]) Completed 12/25/2024 Meningococcal B Vaccine Aged Out [...] Procedure Name Priority Date/Time Associated Diagnosis Comments MAMMOGRAM GENERIC (SCAN ORDER) 07/11/2025 MRI SHOULDER LT WO CON Routine 06/25/2025 1:16 PM CDT Chronic left shoulder pain TB INTRADERMAL TEST (BACK OFFICE) Routine 05/20/2025 2:36 PM CDT PPD screening test XR SHOULDER LT 3V Routine 05/20/2025 2:0 4 PM CDT Chronic left shoulder pain HEPATITIS C ANTIBODY Routine 12/25/2024 10:21 AM FENCE ERECTOR SUPERVISOR Routine general medical examination at a [facility] care facility from Last 3 Months or Most Recently Relevant to Health Maintenance Results * MAMMOGRAM GENERIC (SCAN ORDER) (07/11/2025) Anatomical Region Laterality Modality Other 07/11/2025 [facility] Scanned SCANNING Final Resu lt * MRI SHOULDER LT WO CON (06/25/2025 [...] 3:15 PM Narrative 06/27/2025 3:30 PM CDT [facility] [address] [place] [address] EXAMINATION: MRI SHOULDER LT WO CON EXAM [...] Procedure Note Ibrahima Ragland MD - 06/27/2025 [facility] [address] [place] [address] EXAMINATION: MRI SHOULDER LT WO CON EXAM [...] 4:29 PM Narrative 05/20/2025 4:30 PM CDT [facility] Family [place] [address] Examination: XR SHOULDER LT 3V Exam time: 05/20/2025 1:52 PM Clinical history: Chronic pain Comparison: No prior exam Technique: Internal rotation, external rotation, scapular Y views Findings: Glenohumeral and acromioclavicular joint relationships appear unremarkable. No evidence of fracture, focal bone lesions, or abnormal periosteal reactions. No evidence of abnormal soft tissue densities. Procedure Note Dev Moya MD - 05/20/2025 [facility] Family and Internal Medicine - [place] [id number] Examination: XR SHOULDER LT 3V Exam time: [...] * HEPATITIS C ANTIBODY (12/25/2024 10:21 AM FENCE ERECTOR SUPERVISOR) HEPATITIS C AB NON-REACTI VE NON-REACT ELIANA 12/25/2024 6:11 PM FENCE ERECTOR SUPERVISOR [facility] Comment: ANTIBODIES TO HCV NOT DETECTED. DOES NOT EXCLUDE THE POSSIBILITY OF EXPOSURE TO HCV. 12/25/2024 10:2 1 AM FENCE ERECTOR SUPERVISOR Skyler Lopez MD LABORATORY Final Result [facility] [address] [place] [address], [id number] from Last 3 Months or Most Recently Relevant to Health Maintenance Insurance [facility] Care Teams Grid Inspector Relationship Specialty Start Date End Date Skyler Lopez MD [address] [place] [phone] PCP - General INTERNAL MEDICINE 09/12/18
--- OUTSIDE RECORDS SUMMARY | 2025-08-07 16:23 | XMS_ITS | Encounter Summary ---
Author Organization [facility] Address [address] [place] [id number] Care Team Providers Care Precast Worker Name Role Phone Skyler Lopez MD Primary Care Provider [phone] Encounter Details Date Type Department Care Team (Latest Contact Info) Description 09/25/2018 Abstract [facility] , Kody Howard MD Social History Tobacco Use Types Packs/Day Years Used Date Smoking Tobacco: Never Assessed Comments Unknown Sex and Gender Information Value Date Recorded Sex Assigned at Female 10/16/2018 1:45 PM WIRELESS SALES ASSOCIATE Legal Sex Female 8:09 PM CDT Gender Identity Female 10/16/2018 1:45 PM [employer]LESS SALES [employer]OCIATE Sexual Orientation Straight 10/16/2018 1: 45 PM WIRELESS SALES ASSOCIATE documented as of this encounter Plan of Treatment Not on file documented as of this encounter Visit Diagnoses Not on filedocumented in this encounter Care Teams Precast Worker Relationship Specialty Start Date End Date Skyler Lopez MD [address] [place] [address] [phone] PCP - General INTERNAL MEDICINE 09/12/18 documented as of this encounter
--- OUTSIDE RECORDS SUMMARY | 2025-08-07 16:23 | XMS_ITS | Clinical Summary ---
Author Organization [facility] Address [address] [place] [address] Care Team Providers Care Machine Try Out Setter Name Role Phone Skyler Lopez MD Primary Care Provider [phone] Allergies No known active allergies Medications Aurovela [...] Type Department Care Team Description 06/30/2025 Telephone [facility] Orthopedics and Sports Medicine [address] [phone] Cary Martinez MA Left message for Appointment 06/26/2025 2:00 PM CDT Office Visit [facility] Medical [facility] Orthopedics and Sports Medicine [address] [facility] [address] [place] [phone] Taylor Clements PA Left hip pain (Primary Dx) 06/26/2025 7:43 AM CDT - 06/26/2025 11:59 PM CDT Hospital Encounter [facility] Orthopedics and Sports Medicine [address] [facility] [facility] [address] [place] [id number] Discharge Disposition: Discharge to home or self care from Last 3 Months Surgical History Surgery [...] on file Legal Sex Female 4:49 AM CENTRAL OFFICE INSTALLER Gender Identity Not on file Sexual Orientation [...] SCDM series) 2011 Covid-19 Vaccine (2 - 2024- season) 2025 02/16/2021 Influenza Vaccine (#1) 2025 2, 09/21/2021, 10/13/2020, Additional history exists DTaP/Tdap/Td Vaccine [...] mild degenerative changes and maintained joint space. Taylor ROGER IMG XR PROCEDURES Dario stephanie Result - Final from Last [address] [place] [place] [address] [facility]LY [facility], [facility] [employer] Care Teams Machine Try Out Setter Relationship Specialty Start Date End Date Skyler Lopez MD [address] [place] [address] PCP - General Internal Medicine 03/03/21
[2025-08-07 16:28] VITALS: BP 123/65; PULSE 70; RESP 18; TEMP 37.1; O2SAT 100
--- NOTE | 2025-08-07 16:36 | ED_ITS ---
HPI - General Adult General Chief complaint: Unspecified Stated complaint: left thigh stitches removal Time Seen by Provider: 08/07/25 16:35 Source: patient Mode of arrival: ambulatory Limitations: no limitations History of Present Illness HPI narrative: Leana is a 40-year-old female patient presenting to the clinic today for a suture removal of the left thigh. Two weeks ago patient had a labrum tear repair. Patient was seeing physical therapist today and they were supposed to take out her stitches however he did not have a suture removal kit. Patient came here to have sutures removed. Denies any other concerns. Related Data Home Medications ?Medication ?Instructions ?Recorded ?Confirmed ?Last Taken ?Type meloxicam 15 mg tablet 15 mg PO DAILY 03/26/24 Unk nown History aspirin 81 mg tablet,delayed mg 08/07/25 Unknown Hist ory release celecoxib 200 mg capsule mg 08/07/25 Unknown History Allergies Allergy/AdvReac Type Severity Reaction Status Date / Time No Known Allergies Allergy Verified 08/07/25 16:23 Review of Systems Review of Systems: Pertinent positives per HPI. Patient denies any fever, chills, rash, headache, visual changes, dizziness, cough, runny nose, sore throat, shortness of breath, chest pain, palpitations, nausea, vomiting, diarrhea, constipation, abdominal pain, or any urinary issues. [facility] Past Medical History Medical History No active medical problems Family History Family History Grandparent Heart disease Thyroid disorder Social History Social History Smoking status: Never smoker Alcohol intake: never Substance use: never Substance use type: does not use Do You Feel Safe in your Home?: Yes Lack of Transportation: No Lack of Food: Never True Current Housing: I Have Housing Concerned About Future Housing: No Difficulty Paying Gas/Electric Bills: No Difficulty Paying for Meds: No Currently Unemployed: No Education: Bachelor's Degree Difficulty w/ Childcare or Family Care: No Comments At the time of my signature, I reviewed and agree with the nursing past medical, surgical, social, and family history. There is no relevant family history pertinent to the patient complaint. Exam Narrative: General: Well-developed, well nourished, in no apparent distress Head: Normocephalic, atraumatic. Cardio: Regular rate and rhythm, s1 and s2 normal, no murmur appreciated. Resp: Clear to auscultation bilaterally, no rhonchi, rales, wheezing or rubs. Integumentary: [place], warm, and dry, 3 continuous sutures removed from the left anterior lateral thigh-wound is well healing-no redness, induration, erythema, or discharge Course Course Emergency Course: Portions of this record may have been created with voice recognition software. Level of Care: Express Care Visit Vital Signs Vital signs: Vital Signs Temperature 37.1 C 08/07/25 16:28 Pulse Rate 70 08/07/25 16:28 Respiratory Rate 08/07/25 16:28 Blood Pressure 123/65 08/07/25 16:28 Pulse Oximetry 100 08/07/25 16:28 Oxygen Delivery Room Air 08/07/25 16:28 Temperature 37.1 C 08/07/25 16:28 Pulse Rate 70 08/07/25 16:28 Respiratory Rate 08/07/25 16:28 Blood Pressure 123/65 08/07/25 16:28 Pulse Oximetry 100 08/07/25 16:28 Oxygen Delivery Room Air 08/07/25 16:28 Vital signs reviewed Medical Decision Making MDM Narrative Medical decision making narrative: At the time of visit patient is resting comfortably on the exam table. Patient appears to be nontoxic. Patient has 3 continuous sutures to the left lateral anterior [id number]. Plan: Patient is here for suture removal. Suture removed in the clinic today-3 continuous sutures were removed and patient tolerated well. Supportive measures were discussed with the patient and they voiced understanding discharge instructions and agrees to treatment plan. Return precautions reviewed Differential Diagnosis Differential Diagnosis: Healing laceration, encounter for suture removal Vital Signs Vital Signs: Vital Signs Temperature 37.1 C 08/07/25 16:28 Pulse Rate 70 08/07/25 16:28 Respiratory Rate 08/07/25 16:28 Blood Pressure 123/65 08/07/25 16:28 Pulse Oximetry 100 08/07/25 16:28 Oxygen Delivery Room Air 08/07/25 16:28 Temperature 37.1 C 08/07/25 16:28 Pulse Rate 70 08/07/25 16:28 Respiratory Rate 18 08/07/25 16:28 Blood Pressure 123/65 08/07/25 16:28 Pulse Oximetry 100 08/07/25 16:28 Oxygen Delivery Room Air 08/07/25 16:28 Discharge Plan Discharge Clinical Impression: Encounter for removal of sutures Patient Disposition: Home Condition: Stable Instructions: Antibiotic Form, Stitches Removal (ED) Additional Instructions: Sutures removed in the clinic today Wounds look like they are well healing Watch for signs and symptoms of infection-redness, swelling, fever, increase in pain, or purulent discharge Follow-up with your PCP/surgeon as scheduled Patient Language: Setswana Prescriptions: No Action celecoxib 200 mg capsule aspirin 81 mg tablet,delayed release (DR/EC) meloxicam 15 mg tablet 15 mg PO DAILY Follow-up/Referrals: Jessica,Skyler Hogue MD [Primary Care Provider] Time of Disposition: 16:37 Quality NIHSS Nursing Documentation ED NIHSS nursing documentation: reviewed/agree
== END 2025-08-07 16:45 | disposition home or self-care (01) ==
PROVIDERS: Emergency Provider Nurse Practitioner Family; PCP Internal Medicine
DX: Z48.02 Encounter for removal of sutures (principal)
CPT/HCPCS: 99211; G0463